=== PATIENT | female | born 1960 | race Caucasian/White ===

== ENCOUNTER 2018-02-12 03:43 | Emergency (ER) | payer OTHER ==
[~2018-02-12] VITALS: Ht 152.4 cm; Wt 60.3 kg
[~2018-02-12 03:43] MED LIST: CLONAZEPAM1 MG PO; CYMBALTA30 MG PO; LYRICA50 MG PO; NEURONTIN600 MG PO
== END 2018-02-12 14:36 | disposition designated cancer center or children's hospital (05) ==
LOC: ER 03:43
DX: T42.6X2A Poisoning by other antiepileptic and sedative-hypnotic drugs, intentional self-harm, initial encounter (principal); T39.1X2A Poisoning by 4-Aminophenol derivatives, intentional self-harm, initial encounter; T42.4X2A Poisoning by benzodiazepines, intentional self-harm, initial encounter; Y92.098 Other place in other non-institutional residence as the place of occurrence of the external cause